=== PATIENT | female | born 1980 | race Caucasian/White ===

== ENCOUNTER 2018-02-21 23:21 | Emergency (ER) | payer SELFPAY ==
[~2018-02-21] VITALS: Ht 160 cm; Wt 73.7 kg
[~2018-02-21 23:21] MED LIST: CEPH-443 PO; PENI500T PO
[2018-02-21 23:26] VITALS: Ht 160 cm; Wt 73.7 kg
[2018-02-22 02:16] VITALS: BP 127/73; PULSE 65; RESP 18
--- NOTE | 2018-02-25 15:50 | ERD ---
ER Documentation Chief Complaint Chief Complaint vaginal bleeding/lower abd pain x 3 days. unsure if HPI 37-year-old female presenting with vaginal bleeding times 3 days. Patient is unsure if she is and she is having some generalized abdominal pain with cramping. She denies any back pain. Denies any fevers. Has not taken medication for symptoms. Denies other medical problems. NKDA. Surgical history denies. Social history denies ROS All systems reviewed and are negative except as per history of present illness. Medications Home Meds Active Scripts Cephalexin* (Keflex*) 500 Mg Capsule, 500 MG PO QID for 5 Days, CAP Prov:AZUL VINCENT PA-C 10/29/17 Penicillin V Potassium* (Penicillin V K*) 500 Mg Tab, 500 MG PO BID for 7 Days, TAB Prov:JANINA WARD PA-C 09/27/15 Allergies Allergies: Coded Allergies: No Known Allergy (Verified , 02/21/18) PMhx/Soc History of Surgery: Yes (TONSILLECTOMY ) Anesthesia Reaction: No Hx Neurological Disorder: No Hx Respiratory Disorders: No Hx Cardiac Disorders: No Hx Psychiatric Problems: No Hx Miscellaneous Medical Probl: No Hx Alcohol Use: No Hx Substance Use: No Hx Tobacco Use: No Smoking Status: Never smoker Physical Exam Vitals Vital Signs Date Temp Pulse Resp B/P (MAP) Pulse Ox O2 O2 Flow FiO2 Time Delivery Rate 02/22/18 98.1 65 18 127/73 96 Room Air 02:16 (91) 02/21/18 98.8 65 18 138/65 100 23:26 (89) Physical Exam Const: No acute distress Head: Atraumatic Eyes: Normal Conjunctiva ENT: Normal External Ears, Nose and Mouth. Neck: Full range of motion. No meningismus. Resp: Clear to auscultation bilaterally Cardio: Regular rate and rhythm, no murmurs Abd: Soft, non tender, non distended. Normal bowel sounds Skin: No petechiae or rashes Back: No midline or flank tenderness Ext: No cyanosis, or edema Neur: Awake and alert Psych: Normal Mood and Affect Result Diagram: 02/22/18 0010 02/22/18 0010 Results 24 hrs Laboratory Tests Test 02/21/18 23:56 02/22/18 00:10 Urine Color YELLOW Urine Clarity SLIGHTLY CLOUDY Urine pH 5.0 Urine Specific [place] 1.030 Urine Ketones NEGATIVE mg/dL Urine Nitrite NEGATIVE mg/dL Urine Bilirubin NEGATIVE mg/dL Urine Urobilinogen 1+ mg/dL Urine Leukocyte Esterase NEGATIVE Aaron/ul Urine Microscopic RBC 4 /HPF Urine Microscopic WBC 7 /HPF Urine Squamous Epithelial Cells FEW /HPF Urine Bacteria FEW /HPF Urine Mucus FEW /HPF Urine Hemoglobin 3+ mg/dL Urine Glucose NEGATIVE mg/dL Urine Total Protein NEGATIVE mg/dl White Blood Count 8.2 10^3/ul Red Blood Count 4.23 10^6/ul Hemoglobin 13.5 g/dl Hematocrit 40.2 % Mean Corpuscular Volume 95.0 fl Mean Corpuscular Hemoglobin 31.9 pg Mean Corpuscular Hemoglobin Concent 33.6 g/dl Red Cell Distribution Width 12.5 % Platelet Count 230 10^3/UL Mean Platelet Volume 10.9 fl Immature Granulocytes % 0.200 % Neutrophils % 51.1 % Lymphocytes % 41.1 % Monocytes % 6.4 % Eosinophils % 1.0 % Basophils % 0.2 % Nucleated Red Blood Cells % 0.0 /100WBC Immature Granulocytes # 0.020 10^3/ul Neutrophils # 4.2 10^3/ul Lymphocytes # 3.4 10^3/ul Monocytes # 0.5 10^3/ul Eosinophils # 0.1 10^3/ul Basophils # 0.0 10^3/ul Nucleated Red Blood Cells # 0.0 10^3/ul Sodium Level 143 mmol/L Potassium Level 3.7 mmol/L Chloride Level 103 mmol/L Carbon Dioxide Level 26 mmol/L Anion Gap 14 Blood Urea Nitrogen 22 mg/dl Creatinine 0.85 mg/dl Est Glomerular Filtrat Rate mL/min > 60 mL/min Glucose Level 100 mg/dl Calcium Level 9.2 mg/dl Total Bilirubin 0.3 mg/dl Direct Bilirubin 0.00 mg/dl Indirect Bilirubin 0.3 mg/dl Aspartate Amino Transf (AST/SGOT) 24 IU/L Alanine Aminotransferase (ALT/SGPT) 22 IU/L Alkaline Phosphatase 59 IU/L Total Protein 7.6 g/dl Albumin 4.6 g/dl Globulin 3.00 g/dl Albumin/Globulin Ratio 1.53 Beta HCG, Quantitative 13.6 mIU/ml [facility] REPORT Patient: DARIO BHANDARI : 1980 Age: 37 Sex: F [id number] [id number] DOS: 02/22/18 2348 Ordering MD: BRADY DEGROOT PA-C Location: [facility] Room/Bed: PROCEDURE: US OB 1st Trimester. CLINICAL INDICATION: Spotting, pain TECHNIQUE: Transabdominal and transvaginal views of the pelvis are available for review. COMPARISON: No prior studies are available for comparison. FINDINGS: There is no visible intrauterine . No uterine lesions are identified. The right ovary measures 2.9 x 1.7 x 1.8 cm and the left ovary measures 3.0 x 1.8 x 2.5 cm. Both ovaries contain normal follicles and demonstrate normal vascularity. No adnexal lesions are identified. There is no pelvic free fluid. IMPRESSION: No visible intrauterine gestational sac. Findings may indicate very early or spontaneous . Although no suspicious adnexal lesions are identified, ectopic is not definitively excluded. Recommend correlation with serum beta HCG levels and ultrasound follow-up as clinically warranted. MDM: 37-year-old female presenting with vaginal bleeding. Patient's beta quant levels are very low and almost negligible. Patient is recommended to return in 2 days for repeat as she is likely experiencing a miscarriage causing her beta quant levels to decrease. Patient is Rh+ does not require RhoGam injection. Patient's urine does not show signs of infection. Patient is told symptoms change or worsen to return immediately to the ER. Patient is also recommended to follow-up with primary care. All questions answered at discharge Departure Diagnosis: Primary Impression: Vaginal bleeding Condition: Stable Patient Instructions: Possible Miscarriage (Threatened ) Referrals: [facility] [id number] [facility] [address] [place] [phone] [facility] [address] [place] [place] [phone] [facility] [address] [place] [place] [phone] [facility] [address] [facility] [address] [place] [address] [place] [place] [phone] [facility] [place] [address] [place] [address] [facility] [id number] - [address], [facility] [address] [address], [place] [address] [facility]. [address], [place] [address] [address] [address] [place], [place] [phone] Additional Instructions: FOLLOW UP WITH YOUR PRIMARY CARE PHYSICIAN TOMORROW.Return to this facility if you are not improving as expected. ROOSEVELT DEGROOT PA-C Feb 25, 2018 15:50
== END 2018-02-22 02:24 | disposition home or self-care (01) ==
LOC: FTE 23:21
DX: N93.9 Abnormal uterine and vaginal bleeding, unspecified (principal); R10.2 Pelvic and perineal pain
CPT/HCPCS: 76801; 76817; 80053; 81001; 84702; 85025; 86900; 86901